=== PATIENT | male | born 1960 | race Caucasian/White ===

== ENCOUNTER 2017-08-02 13:11 | Emergency (ER) | payer OTHER ==
[~2017-08-02] VITALS: Ht 177.8 cm; Wt 53.5 kg
[2017-08-02 16:40] VITALS: BP 198/122
== END 2017-08-02 16:40 | disposition home or self-care (01) ==
LOC: ED 13:11
DX: T18.108A Unspecified foreign body in esophagus causing other injury, initial encounter (principal); I10 Essential (primary) hypertension; F17.210 Nicotine dependence, cigarettes, uncomplicated; X58.XXXA Exposure to other specified factors, initial encounter; Y93.89 Activity, other specified; Y92.89 Other specified places as the place of occurrence of the external cause; Y99.8 Other external cause status

== ENCOUNTER 2019-06-28 15:41 | Inpatient (IN) | payer OTHER ==
[~2019-06-28] VITALS: Ht 175.3 cm; Wt 51.7 kg
--- NOTE | 2019-06-28 17:19 | NUR ---
SPEECH CLEAR. NAD NOTED. BREATHING E/U., SENTENCES FULL
--- NOTE | 2019-06-28 17:41 | NUR ---
PATIENT AAOX4 PRESENTS TO THE ED WITH C/O "STEAK" STUCK IN HIS THROAT SINCE LAST NIGHT. PT STS HE DIDN'T COME TO THE HOSPITAL EARLIER BECAUSE HE THOUGHT IT WOULD PASS BUT NOW IT'S BECOMING PAINFUL. PT DENIES SOB, DIFFICULTY BREATHING. BREATHING E/U, SKIN WARM DRY AND INTACT. NO OTHER SS OF DISTRESS NOTED. WILL CONTINUE TO MONITOR.
--- NOTE | 2019-06-28 19:38 | NUR ---
PATIENT BACK FROM CT.
--- NOTE | 2019-06-28 20:21 | NUR ---
PT MEDICATED PER MD ORDERS.
--- NOTE | 2019-06-28 21:40 | NUR ---
PT RESTING ON GURNEY IN NAD, EASILY AROUSABLE. PT BREATHING EVEN AND UNLABORED, SPEAKING FULL CLEAR SENTENCES. CM AND [address] WILL CONTINUE TO MONITOR.
--- NOTE | 2019-06-28 22:49 | NUR ---
REPORT CALLED TO HARRIET DIAZ.
--- NOTE | 2019-06-28 23:16 | NUR ---
PT TAKEN TO [facility] AT THIS TIME IN NAD. PT A&0X4, SPEAKING FULL CLEAR SENTENCES. PT BREATHING EVEN AND UNLABORED. PT TRANSFERED VIA WHEELCHAIR BY CHRISTOPHER RIVAS. PT VERBALIZED UNDERSTANDING OF PLAN OF CARE. IV INTACT AND FLUSHED WITH NO COMPLICATIONS.
--- NOTE | 2019-06-28 23:50 | NUR ---
PT WAS RECEIVED BY PRIMARY NURSE HARRIET FROM ED, CAME IN DUE TO MEAT STUCKED ON HIS THROAT. PT SEEN LYING IN BED, AAOX4. DENIES HEADACHE/DIZZINESS. ABLE TO FOLLOW COMMANDS. C/O DIFFICULTY SWALLOWING AND PAIN ON SWALLOWING. ABLE TO SPEAK IN FULL SENTENCES. NO SOB NOTED, LUNG SOUNDS CTA. O2 SAT=97%, RA. DENIES CHEST PAIN/PRESSURE. DENIES ABDOMINAL DISCOMFORT. VOIDS. PT REFUSES SKIN ASSESSMENT, STATED THAT HE HAS NO OPEN WOUNDS. IV SITE PATENT AND INTACT. SIDE RAILS UPX2. CALL LIGHT ON REACH. ENDORSED TO PRIMARY NURSE HARRIET FOR CONTINUITY OF CARE
[2019-06-28 23:52] VITALS: BP 171/107
[2019-06-28 23:56] VITALS: Ht 175.3 cm; Wt 51.7 kg
--- NOTE | 2019-06-29 00:12 | NUR ---
RECEIVED PT FROM ED, NO ACUTE DISTRESS. A/O X4. NO TELE, MED/SURG. DENIES CHEST PAIN. PULSES PALPABLE IN ALL EXTREMIITES, NO EDEMA NOTED. PT C/O DIFFICULTY SWALLOWING AND PAIN WHILE SWALLOWING. LUNG SOUNDS CTA BILATERALLY, DENIES SOB. BOWEL SOUNDS ACTIVE, LAST BM 06/28/19. VOIDING WELL. AMBULATORY. SKIN INTACT. IV PATENT AND INTACT. BED IN LOWEST POSITION, SIDE RAILS UP X2, CALL LIGHT WITHIN REACH. ORIENTED PT TO ROOM. WILL CONTINUE TO MONITOR.
--- NOTE | 2019-06-29 00:22 | NUR ---
BP 171/109, DR RAMSAY INFORMED. WILL MEDICATE PER EMAR.
[2019-06-29 02:42] VITALS: BP 139/74
[2019-06-29 04:33] VITALS: BP 164/100
--- NOTE | 2019-06-29 06:43 | NUR ---
PT SLEPT PERIODICALLY THROUGHOUT NIGHT, NO ACUTE DISTRESS. ALL NEEDS MET AND ATTENDED TO. NO SIGNIFICANT CHANGES. IV PATENT AND INTACT. PT REFUSING MORNING LABS. BP 164/100, MEDICATED PER EMAR. BED IN LOWEST POSITION, SIDE RAILS UP X2, CALL LIGHT WITHIN REACH. WILL ENDORSE CARE TO ONCOMING NURSE.
--- NOTE | 2019-06-29 06:51 | NUR ---
PER DR RAMSAY, PT OKAY TO HAVE ICE CHIPS.
[2019-06-29 06:54] VITALS: BP 145/86
--- NOTE | 2019-06-29 07:15 | NUR ---
RECEIVED PT FROM NIGHT NURSE. PT IS LAYING DOWN IN BED WITH HOB UP RESTING WITH EYES CLOSED. PT LOOKS TO BE IN NO ACUTE DISTRESS AT THIS TIME. RESPRIATIONS EVEN AND UNLABORED ON ROOM AIR. IV SITE PATENT WITH NO SIGNS OF ERYTHEMA OR SWELLING. CALL LIGHT WITHIN REACH, BED IN LOWEST POSITION. WILL CONTINUE TO MONITOR.
--- NOTE | 2019-06-29 08:30 | NUR ---
DR. HARTLEY CALLED AND ASKED TO CHECK WITH PT TO SEE IF OKAY WITH DOING EGD. PT AGREEABLE TO EGD AND STATED THAT HE HAS DONE EGD IN THE PAST. PAGED DR. HARTLEY AND WILL NOTIFY.
--- NOTE | 2019-06-29 08:40 | NUR ---
DR. HARTLEY AT BEDSIDE SPEAKING WITH PT. WILL GET CONSENT AND CHECKLIST STARTED.
--- NOTE | 2019-06-29 08:59 | NUR ---
EGD CONSENT SIGNED AND IS IN CHART. PT HAS FULL DENTURES. PROVIDED PT WITH CONTAINER AND LABELED WITH PT'S STICKER. DENTURES REMOVED AND PLACE IN BEDSIDE NIGHT STAND. PT LOOKS TO BE IN NO ACUTE DISTRESS AT THIS TIME. WILL CONITNUE TO MONITOR.
--- NOTE | 2019-06-29 09:06 | NUR ---
PT TAKEN DOWN TO GI FOR EGD.
[2019-06-29 10:18] VITALS: BP 168/99
--- NOTE | 2019-06-29 10:18 | NUR ---
PT ARRIVED FROM OUTPT POST EGD. PT IS DROWSY AND EASILY AROUSABLE AT THIS TIME. CURRENT VITALS ARE BP: 168/99, MAP: 127, HR: 93, O2: 96% ON ROOM AIR, RR: 16, TEMP: 97.7. PT LOOKS TO BE IN NO ACUTE DISTRESS AT THIS TIME. WILL CONTINUE TO MONITOR.
--- NOTE | 2019-06-29 10:35 | NUR ---
INFORMED DR. SCHRADER OF PT'S HIGH BLOOD PRESSURE OF 168/99 AND CURRENT PRN MEDICATION OF IVP HYDRALYZINE. ORDERED PO HYDRALYZINE 10MG Q4HR PRN AND PUREE DIET. WILL CARRY OUT ORDERED.
[2019-06-29 11:45] VITALS: BP 167/93
[2019-06-29 13:13] VITALS: BP 133/89
--- NOTE | 2019-06-29 13:13 | NUR ---
RECHECKED BLOOD PRESSURE AFTER PO HYDRALYZINE AND IS 133/89, MAP 103. PT LOOKS TO BE IN NO ACUTE DISTRESS AT THIS TIME. PT ASKING WHEN WILL BE DISCHARGED. INFORMED PT THAT NO ORDER IS PRESENT AT THIS TIME. PT STATED THAT, "I WILL BE LEAVING TODAY, YOU CAN TELL THEM THAT." INFORMED THE PT ABOUT LEAVING AMA AND PT STATED, "I WILL BE LEAVING TODAY, YOU CAN BE SURE OF THAT." ASKED PT TO WAIT UNTIL IS NOTIFIED THAT OF WANTING TO LEAVE TODAY, PT VERBALIZED UNDERSTANDING. PT IS LAYING DOWN IN BED WITH HOB UP RESTING. CALL LIGHT WITHIN REACH. WILL CONTINUE TO MONITOR.
--- NOTE | 2019-06-29 14:42 | NUR ---
SPOKE WITH DR. SCHRADER AND INFORMED OF PT'S WISHES TO LEAVE HOSPITAL TODAY, STATED WILL NOT BE DISCHARGED AT THIS TIME BUT STRONGLY RECOMMENDS TO STAY IN ORDER TO UNTIL DINNER TO ENSURE THAT HE CAN SWALLOW WHOLE FOODS PROPERLY. PT IS SITTING IN BEDSIDE CHAIR IN PERSONAL CLOTHES. INFORMED PT OF RECOMMENDATION AND PT STATED THAT "THE IS NOT GOING TO DO ANYTHING ELSE TO ME, I CAN EAT FINE, I AM LEAVING NOW." PT REQUESTING TO HAVE IV REMOVED AND WOULD LIKE TO LEAVE NOW. WILL PRINT OUT AMA FORM AND REMOVE IV.
--- NOTE | 2019-06-29 14:47 | NUR ---
NOTIFIED DR. SCHRADER OF PT LEAVING AMA AT THIS TIME
--- NOTE | 2019-06-29 14:53 | NUR ---
PT LEFT HOSPITAL AMA. PT SIGNED AMA FORM AND REFUSED TO WAIT FOR [facility] TO COME AND SPEAK WITH HIM. INFORMED PT OF RISKS OF LEAVING AMA, PT VERBALIZED UNDERSTANDING. REMOVED IV, CATHETER FULLY INTACT, REMOVED WRSIT BAND. INFORMED PT TO FOLLOW UP WITH PCP AND INFORM PCP OF WHAT HAPPENED IN HOSPITAL AND THAT THE WERE WANTING TO DO A CT OF THE CHEST. PT STATED THAT HE HAS AN APPOINTMENT WITH PCP SOON AND WILL INFORM PCP OF HOSPTIALIZATION. PT WALKED TO [facility] ACCOMPANIED BY NURSE WITH BELONGINGS IN HAND. PT LOOKS TO BE IN NO ACUTE DISTRESS AT TIME AND AMA.
== END 2019-06-29 14:53 | disposition left against medical advice (07) | DRG 254 ==
LOC: ED 15:41 → MU 22:14
PROVIDERS: Internal Medicine Gastroenterology; ADMIT Internal Medicine
PROC: 0DB18ZX Excision of Upper Esophagus, Via Natural or Artificial Opening Endoscopic, Diagnostic (ICD-10-PCS; principal; 2019-06-29 08:00)
PROC: 0D718ZZ Dilation of Upper Esophagus, Via Natural or Artificial Opening Endoscopic (ICD-10-PCS; 2019-06-29 08:00)
DX: T18.128A Food in esophagus causing other injury, initial encounter (principal); K22.2 Esophageal obstruction; K22.4 Dyskinesia of esophagus; I16.0 Hypertensive urgency; X58.XXXA Exposure to other specified factors, initial encounter; F17.210 Nicotine dependence, cigarettes, uncomplicated; Z68.1 Body mass index [BMI] 19.9 or less, adult; Y93.89 Activity, other specified; Y92.010 Kitchen of single-family (private) house as the place of occurrence of the external cause; Z53.21 Procedure and treatment not carried out due to patient leaving prior to being seen by health care provider
CPT/HCPCS: 43235; 84439; C9113; G0378; J0360; J1200; J1610; J2060; J2250; J2310; J2765; J3010; J3490; J7030; Q0092

== ENCOUNTER 2020-08-19 09:35 | Inpatient (IN) | payer OTHER ==
[~2020-08-19] VITALS: Ht 175.3 cm; Wt 64.4 kg
[2020-08-19 10:04] VITALS: Ht 175.3 cm; Wt 64.4 kg
[2020-08-19 11:12] LABS: BASOPHIL % 0.5 % (0.2-1.5); PLATELET COUNT 143 x10^3mcL (152-348)
[2020-08-19 11:13] LABS: RED CELL DISTRIBUTION WIDTH 16.7 % (12.1-16.2)
[2020-08-19 11:39] LABS: BILIRUBIN TOTAL 1.8 mg/dL (0.20-1.00); CALCIUM 9.7 mg/dL (8.5-10.1); CARBON DIOXIDE 18.7 mmol/L (21-32); POTASSIUM SERUM 3.4 mmol/L (3.5-5.1); TOTAL PROTEIN, SERUM 7.4 g/dL (6.4-8.2)
[2020-08-19 14:05] LABS: UA SPECIFIC GRAVITY 1.025 (1.005-1.035); microscopic required? YES; urine erythrocyte TRACE (NEGATIVE)
[2020-08-19 15:58] VITALS: BP 173/110
[2020-08-19 17:14] VITALS: BP 151/99
[2020-08-19 21:00] VITALS: BP 155/111
[2020-08-20 04:47] VITALS: BP 141/96
[2020-08-20 06:57] LABS: CALCIUM 9.1 mg/dL (8.5-10.1); CARBON DIOXIDE 20.4 mmol/L (21-32); MAGNESIUM 1.7 mg/dL (1.8-2.4); PHOSPHOROUS 6.6 mg/dL (2.5-4.9)
[2020-08-20 07:05] LABS: CHOLESTEROL/HDL RATIO 5.3; CREATININE SERUM 4.7 mg/dL (0.7-1.3)
[2020-08-20 08:11] VITALS: BP 158/99
[2020-08-20 10:31] LABS: BASOPHIL % 0.6 % (0.2-1.5)
[2020-08-20 10:32] LABS: PLATELET COUNT 127 x10^3mcL (152-348); RED CELL DISTRIBUTION WIDTH 16.2 % (12.1-16.2)
[2020-08-20 12:15] VITALS: BP 117/77
[2020-08-20 17:23] VITALS: BP 107/71
[2020-08-20 20:13] VITALS: BP 122/94
[2020-08-21 06:35] VITALS: BP 97/66
[2020-08-21 06:56] LABS: BASOPHIL % 0.1 % (0.2-1.5)
[2020-08-21 07:11] LABS: CALCIUM 8.8 mg/dL (8.5-10.1); CARBON DIOXIDE 22.4 mmol/L (21-32); MAGNESIUM 1.8 mg/dL (1.8-2.4); PHOSPHOROUS 6.7 mg/dL (2.5-4.9); POTASSIUM SERUM 3.2 mmol/L (3.5-5.1)
[2020-08-21 07:15] LABS: CREATININE SERUM 4.7 mg/dL (0.7-1.3); PLATELET COUNT 106 x10^3mcL (152-348); RED CELL DISTRIBUTION WIDTH 16.8 % (12.1-16.2)
[2020-08-21 08:12] VITALS: BP 111/64
[2020-08-21 12:01] VITALS: BP 113/84
[2020-08-21 17:05] VITALS: BP 97/70
[2020-08-21 20:36] VITALS: BP 94/71
[2020-08-22 05:37] VITALS: BP 106/65
[2020-08-22 08:18] VITALS: BP 108/65
[2020-08-22 16:04] VITALS: BP 106/74
[2020-08-23] MEDS ORDERED: LASIX40 MG PO (17:22)
[2020-08-23] MEDS ORDERED: IMD60 PO (17:23)
[2020-08-23] MEDS ORDERED: COREG3.125 MG PO (17:23)
[2020-08-23] MEDS ORDERED: HYDRALAZINE HCL25 MG PO (17:24)
== END 2020-08-22 16:52 | disposition left against medical advice (07) | DRG 812 ==
LOC: ED 09:35 → DU 12:58
PROVIDERS: Emergency Medicine; ADMIT Hospitalist; ATTEND Hospitalist
DX: T43.621A Poisoning by amphetamines, accidental (unintentional), initial encounter (principal); I50.23 Acute on chronic systolic (congestive) heart failure; I42.7 Cardiomyopathy due to drug and external agent; N18.4 Chronic kidney disease, stage 4 (severe); N17.9 Acute kidney failure, unspecified; Z20.822 Contact with and (suspected) exposure to COVID-19; I13.0 Hypertensive heart and chronic kidney disease with heart failure and stage 1 through stage 4 chronic kidney disease, or unspecified chronic kidney disease; I25.2 Old myocardial infarction; F17.210 Nicotine dependence, cigarettes, uncomplicated; Z53.29 Procedure and treatment not carried out because of patient's decision for other reasons; I16.1 Hypertensive emergency; F15.10 Other stimulant abuse, uncomplicated; Z59.0 Homelessness; Z71.6 Tobacco abuse counseling; Z91.14 Patient's other noncompliance with medication regimen; Z71.51 Drug abuse counseling and surveillance of drug abuser; Y92.89 Other specified places as the place of occurrence of the external cause
CPT/HCPCS: 36600; 83880; 85378; G0378; J0360; J0696; J1940; J2405; J3480; J3490; J7030; J7060

== ENCOUNTER 2020-08-22 18:02 | Inpatient (IN) | payer OTHER ==
[~2020-08-22] VITALS: Ht 175.3 cm; Wt 57.8 kg
[2020-08-22 18:05] VITALS: Ht 175.3 cm; Wt 57.8 kg
[2020-08-22 18:59] LABS: BASOPHIL % 0.6 % (0.2-1.5)
[2020-08-22 19:06] LABS: PLATELET COUNT 82 x10^3mcL (152-348); RED CELL DISTRIBUTION WIDTH 18.6 % (12.1-16.2)
[2020-08-22 19:22] LABS: BILIRUBIN TOTAL 1.1 mg/dL (0.20-1.00); CALCIUM 9.3 mg/dL (8.5-10.1); CARBON DIOXIDE 25.4 mmol/L (21-32); POTASSIUM SERUM 4.6 mmol/L (3.5-5.1)
[2020-08-22 19:26] LABS: ALBUMIN 2.3 g/dL (3.4-5.0); TOTAL PROTEIN, SERUM 5.9 g/dL (6.4-8.2)
[2020-08-22 19:28] LABS: CREATININE SERUM 5.1 mg/dL (0.7-1.3)
[2020-08-22 23:38] VITALS: BP 144/97
[2020-08-23 06:05] VITALS: BP 122/81
[2020-08-23 07:00] LABS: CALCIUM 9.3 mg/dL (8.5-10.1); MAGNESIUM 1.9 mg/dL (1.8-2.4); POTASSIUM SERUM 3.6 mmol/L (3.5-5.1)
[2020-08-23 07:07] LABS: BASOPHIL % 0.1 % (0.2-1.5)
[2020-08-23 07:08] LABS: PLATELET COUNT 69 x10^3mcL (152-348); RED CELL DISTRIBUTION WIDTH 17.9 % (12.1-16.2)
[2020-08-23 07:09] LABS: ALBUMIN 2.4 g/dL (3.4-5.0); CREATININE SERUM 5.1 mg/dL (0.7-1.3); TOTAL PROTEIN, SERUM 5.6 g/dL (6.4-8.2)
[2020-08-23 08:33] VITALS: BP 139/89
[2020-08-23 11:36] VITALS: BP 128/84
[2020-08-23 16:38] VITALS: BP 143/97
[2020-08-23] MEDS ORDERED: LASIX40 MG PO (17:22)
[2020-08-23] MEDS ORDERED: COREG3.125 MG PO (17:23)
[2020-08-23] MEDS ORDERED: IMD60 PO (17:23)
[2020-08-23] MEDS ORDERED: HYDRALAZINE HCL25 MG PO (17:24)
[2020-08-23 17:50] VITALS: BP 143/97
== END 2020-08-23 19:42 | disposition hospice, home (50) | DRG 194 ==
LOC: ED 18:02 → DU 21:57
PROVIDERS: Emergency Medicine; ADMIT Hospitalist; ATTEND Hospitalist
DX: I13.0 Hypertensive heart and chronic kidney disease with heart failure and stage 1 through stage 4 chronic kidney disease, or unspecified chronic kidney disease (principal); N17.9 Acute kidney failure, unspecified; I42.9 Cardiomyopathy, unspecified; I50.23 Acute on chronic systolic (congestive) heart failure; R79.89 Other specified abnormal findings of blood chemistry; F15.10 Other stimulant abuse, uncomplicated; N18.6 End stage renal disease; Z20.822 Contact with and (suspected) exposure to COVID-19; I25.2 Old myocardial infarction; Z79.899 Other long term (current) drug therapy; Z79.891 Long term (current) use of opiate analgesic; Z79.01 Long term (current) use of anticoagulants; Z87.891 Personal history of nicotine dependence; Z91.19 Patient's noncompliance with other medical treatment and regimen
CPT/HCPCS: 82962; 83880; 97530-GP; G0378; J1940; J2270; P9047